=== PATIENT | female | born 1955 | race Caucasian/White ===

== ENCOUNTER → 2025-10-15 | Outpatient (CLI) | payer MEDICARE ==
--- NOTE | 2025-10-17 10:31 | HMCIMG ---
EXAM: Whole body bone scan. 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 REFERENCE EXAMINATION: None TECHNIQUE: 25 mCi of technetium 99m MDP intravenously. Delayed images were acquired approximately 3 hours after tracer administration. FINDINGS: The radiopharmaceutical is seen in the expected biodistribution. Bilateral THR and TKR status noted. Increased uptake in the mid shaft of the right femur (Tram track appearance) - likely stress fracture. Degenerative uptake in the costo-vertebral junction of left 1st, 9th, and 11th rib, right 5th rib, and LV4/LV5 junction. No other abnormal uptake noted in the entire skeleton. IMPRESSION: Increased uptake in the mid shaft of the right femur - likely due to stress fracture. Recommend MR imaging for further evaluation. /[place]
== END | disposition home or self-care (01) ==
LOC: RAH 10:19
PROVIDERS: ATTEND Physician Assistant Medical
DX: M89.8X5 Other specified disorders of bone, thigh (principal)
CPT/HCPCS: 78315; A9503

== ENCOUNTER → 2025-10-18 | Outpatient (CLI) | payer MEDICARE ==
--- NOTE | 2025-10-22 10:14 | HMCIMG ---
CLINICAL INDICATION: Age-related osteoporosis without current pathological fracture COMPARISON: None TECHNIQUE: Bone densitometry is performed of the lumbar spine and left hip. FINDINGS: Total BMD of lumbar spine is 1.240 g/cm2 with a T-score of 1.8 and Z-score is 2.9. Total BMD of left hip not performed due to hip replacement.. FRAX SCORE: Not provided IMPRESSION: 1. Normal lumbar spine 2. Hips not performed due to hip prosthesis in place 3. I would recommend follow-up in 13 months World Health Organization criteria for BMD interpretation classify patients as Normal (T-score at or above -1.0), Osteopenic (T-score between -1.0 and -2.5), or Osteoporotic (T-score at or below -2.5). FRAX SCORE: A. All treatment decisions require clinical judgment and consideration of individual patient factors, including patient preferences, comorbidities, previous drug use, risk factors not captured in the FRAX model (e.g., frailty, falls, vitamin D deficiency, increased bone turnover, interval significant decline in bone density) and possible [id number] of fracture risk by FRAX. B. In addition, the NOF Guide recommends that FDA-approved medical therapies be considered in postmenopausal women and men age greater than or equal to 50 years with a: i. Hip or vertebral (clinical or morphometric) fracture. ii. T-score of less than or equal to -2.5 at the spine or hip. iii. Ten-year fracture probability by FRAX of greater than or equal to 3% for hip fracture of greater than or equal to 20% for major osteoporotic fracture.
== END | disposition home or self-care (01) ==
LOC: RAH 09:49 → EDUNIT# 10:30
PROVIDERS: ATTEND Physician Assistant Medical
DX: M81.0 Age-related osteoporosis without current pathological fracture (principal)
CPT/HCPCS: 77080